=== PATIENT | female | born 1995 | race Caucasian/White ===

== ENCOUNTER 2017-03-12 18:43 | Emergency (ER) | payer BC ==
[~2017-03-12] VITALS: Ht 162.6 cm; Wt 58.5 kg
--- NOTE | 2017-03-12 19:00 | NUR ---
PT WALKED INTO ER C/O OF ITCHY BODY RASH X 2D... 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 PT IS ALERT, ORIENTED X 4, NO RESP DISTRESS NOTED OR REPORTED UPON ASSESSMENT...
[2017-03-12] MEDS ORDERED: methylPREDNISolone ACETATE 40 MG VIAL IM ONE (19:45)
[2017-03-12] MEDS ORDERED: EPINEPHRINE 1 MG/1 ML AMP SQ ONE (19:45)
[2017-03-12 19:53] VITALS: BP 117/76
[2017-03-12] MEDS ORDERED: EPINEPHRINE 1 MG/1 ML AMP ONE (19:54)
[2017-03-12] MEDS ORDERED: methylPREDNISolone ACETATE 40 MG VIAL ONE (19:55)
--- NOTE | 2017-03-12 20:15 | NUR ---
Patient discharged to home in stable conditon. Written and verbal after care instructions given. Patient verbalizes understanding of instructions. pt walked out of ER unassisted with belongings at side...
== END 2017-03-12 20:28 | disposition home or self-care (01) ==
LOC: ER 19:02
DX: T78.1XXA Other adverse food reactions, not elsewhere classified, initial encounter (principal); R21 Rash and other nonspecific skin eruption; X58.XXXA Exposure to other specified factors, initial encounter
CPT/HCPCS: A4663; J0171; J1030